=== PATIENT | female | born 1970 | race Caucasian/White ===

== ENCOUNTER → 2017-08-25 | Outpatient (CLI) | payer BC | END | disposition home or self-care (01) | LOC: PCVCIMAG 15:23 | DX: I10 Essential (primary) hypertension (principal); R06.00 Dyspnea, unspecified; R07.89 Other chest pain; I74.8 Embolism and thrombosis of other arteries; I25.10 Atherosclerotic heart disease of native coronary artery without angina pectoris; E78.00 Pure hypercholesterolemia, unspecified; Z79.01 Long term (current) use of anticoagulants; Z86.718 Personal history of other venous thrombosis and embolism; Z72.0 Tobacco use | CPT/HCPCS: 93325; 93351 ==